=== PATIENT | male | born 1955 | race Caucasian/White ===

== ENCOUNTER 2022-04-10 19:22 | Emergency (ER) | payer SELFPAY ==
[~2022-04-10] VITALS: Ht 170.2 cm; Wt 68.0 kg
[2022-04-10] MEDS ORDERED: FLUORESCEIN SODIUM OPHTH 1 EA STRIP ONE (22:19)
[2022-04-10] MEDS ORDERED: TETRAcaine 5 ML BOTTLE EACHEYE ONE (22:30)
[2022-04-10] MEDS ORDERED: FLUORESCEIN SODIUM OPHTH 1 EA STRIP OP ONE (22:30)
[2022-04-10] MEDS ORDERED: CIPR2.5D14 LEFTEYE (23:18)
[2022-04-10 23:24] VITALS: BP 136/70
--- NOTE | 2022-04-10 23:24 | NUR ---
Patient discharged to home in stable condition. Written and verbal after care instructions given. Patient verbalizes understanding of instruction.
== END 2022-04-10 23:25 | disposition home or self-care (01) ==
LOC: ER 19:25
DX: S05.02XA Injury of conjunctiva and corneal abrasion without foreign body, left eye, initial encounter (principal); X58.XXXA Exposure to other specified factors, initial encounter; Y93.89 Activity, other specified; Y92.89 Other specified places as the place of occurrence of the external cause; Y99.8 Other external cause status